=== PATIENT | male | born 1980 | race Two or more races ===

== ENCOUNTER → 2017-06-13 | Outpatient (CLI) | payer BC ==
[2017-06-13 10:55] LABS: ADD MAN DIFF? NO
[2017-06-13 11:12] LABS: BASOPHIL # 0.1 10^3/ul (0.0-0.1); BASOPHILS % 0.9 % (0.0-2.0); EOSINOPHILS # 0.1 10^3/ul (0.0-0.5); EOSINOPHILS % 1.1 % (0.0-7.0); HEMATOCRIT 44.1 % (42.0-52.0); HEMOGLOBIN 14.8 g/dl (14.0-18.0); LYMPHOCYTES # 2.2 10^3/ul (0.8-2.9); LYMPHOCYTES % 41.9 % (15.0-51.0); MEAN CORPUSCULAR HEMOGLOBIN 28.7 pg (29.0-33.0); MEAN CORPUSCULAR HGB CONC 33.6 g/dl (32.0-37.0); MEAN CORPUSCULAR VOLUME 85.6 fl (82.0-101.0); MEAN PLATELET VOLUME 11.3 fl (7.4-10.4); MONOCYTE # 0.3 10^3/ul (0.3-0.9); MONOCYTES % 6.2 % (0.0-11.0); NEUTROPHIL # 2.7 10^3/ul (1.6-7.5); NEUTROPHILS % 49.7 % (39.0-77.0); PLATELET COUNT 230 10^3/UL (140-415); RED BLOOD COUNT 5.15 10^6/ul (4.70-6.10); RED CELL DISTRIBUTION WIDTH 12.1 % (11.5-14.5)
[2017-06-13 11:12] LABS: WHITE BLOOD COUNT 5.4 10^3/ul (4.8-10.8)
[2017-06-13 11:34] LABS: ALANINE AMINOTRANSFERASE 43 IU/L (13-69); ALBUMIN 4.4 g/dl (3.3-4.9); ALBUMIN/GLOBULIN RATIO 1.33; ALKALINE PHOSPHATASE 100 IU/L (42-121); ANION GAP 16 (8-16); ASPARTATE AMINO TRANSFERASE 33 IU/L (15-46); BILIRUBIN,INDIRECT 0.2 mg/dl (0-1.1); BILIRUBIN,TOTAL 0.2 mg/dl (0.2-1.3); BLOOD UREA NITROGEN 16 mg/dl (7-20); CALCIUM 9.4 mg/dl (8.4-10.2); CARBON DIOXIDE 28 mmol/L (21-31); CHLORIDE 103 mmol/L (97-110); CHOL/HDL RATIO 4.8 RATIO; CHOLESTEROL 191 mg/dl (100-200); CREATININE 0.89 mg/dl (0.61-1.24); GLUCOSE 90 mg/dl (70-220); HDL CHOLESTEROL 39 mg/dl (28-63); LDL CHOLESTEROL,CALCULATED 134 mg/dl; POTASSIUM 3.9 mmol/L (3.5-5.1); SODIUM 143 mmol/L (135-144); TOTAL PROTEIN 7.7 g/dl (6.1-8.1); TRIGLYCERIDES 91 mg/dl (0-149)
[2017-06-14 14:58] LABS: PROLACTIN 1.5 ng/mL (2.0-18.0)
[2017-06-17 18:41] LABS: FREE TESTOSTERONE 104.8 pg/mL (35.0-155.0); TESTOSTERONE, TOTAL 568 ng/dL (250-1100)
== END | disposition home or self-care (01) ==
LOC: LAB 09:12
DX: E22.1 Hyperprolactinemia (principal)
CPT/HCPCS: 80053; 80061; 84146; 84403; 85025

== ENCOUNTER → 2017-11-24 | Outpatient (CLI) | payer BC ==
[2017-11-24 07:45] LABS: FREE T4 (FREE THYROXINE) 0.97 ng/dl (0.79-2.35)
== END | disposition home or self-care (01) ==
LOC: LAB 06:31
DX: D35.2 Benign neoplasm of pituitary gland (principal)
CPT/HCPCS: 83001; 83002; 84403; 84439; 84443

== ENCOUNTER → 2018-06-19 | Outpatient (CLI) | payer BC ==
[2018-06-19 11:35] LABS: FREE T3 3.79 pg/ml (2.77-5.27)
[2018-06-19 11:39] LABS: FREE T4 (FREE THYROXINE) 1.08 ng/dl (0.79-2.35)
[2018-06-22 10:27] LABS: PROLACTIN <1.0 ng/mL (2.0-18.0)
[2018-06-22 18:57] LABS: FREE TESTOSTERONE 142.2 pg/mL (35.0-155.0); TESTOSTERONE, TOTAL 578 ng/dL (250-1100)
== END | disposition home or self-care (01) ==
LOC: LAB 10:11
DX: D35.2 Benign neoplasm of pituitary gland (principal)
CPT/HCPCS: 84146; 84403; 84439; 84443; 84481

== ENCOUNTER → 2018-12-22 | Outpatient (CLI) | payer BC ==
[2018-12-22 15:36] LABS: FREE T3 4.57 pg/ml (2.77-5.27); FREE T4 (FREE THYROXINE) 1.02 ng/dl (0.79-2.35)
[2018-12-23 14:07] LABS: LUTEINIZING HORMONE 3.5 mIU/mL (1.5-9.3)
[2018-12-26 11:16] LABS: INSULIN-LIKE GROWTH FACTOR I 193 ng/mL (53-331); Z SCORE (MALE) 0.7 SD (-2.0 - +2.0)
[2018-12-26 16:47] LABS: FREE TESTOSTERONE 75.9 pg/mL (35.0-155.0); TESTOSTERONE, TOTAL 500 ng/dL (250-1100)
== END | disposition home or self-care (01) ==
LOC: LAB 12:34
DX: E22.1 Hyperprolactinemia (principal)
CPT/HCPCS: 83001; 83002; 84146; 84305; 84403; 84439; 84481